=== PATIENT | male | born 1955 | race Caucasian/White ===

== ENCOUNTER 2019-02-06 05:08 | Observation (INO) ==
[2019-02-06] MEDS ORDERED: MOM Conc 10 ML UD.LIQ PO PRN (08:47)
[2019-02-06] MEDS ORDERED: Ondansetron ODT 4 MG TAB.RAPDIS SL PRN (08:47)
[2019-02-06] MEDS ORDERED: Acetaminophen 325 MG TABLET PO PRN (08:47)
[2019-02-06] MEDS ORDERED: Naloxone 0.4 MG/ML INJ IVP PRN (08:47)
[2019-02-06] MEDS ORDERED: traMADol 50 MG TABLET PO PRN (08:47)
[2019-02-06] MEDS ORDERED: *HR* LORazepam 2 MG/ML VIAL IVP PRN ×3 (08:56)
[2019-02-06] MEDS ORDERED: Azithromycin 500 MG in D5% in Water 250 ML IVPB SCH (09:00)
[2019-02-06] MEDS ORDERED: cefTRIAXone 1,000 MG in Water for inj. (sterile) 20 ML 10 ML IVP SCH (09:00)
--- NOTE | 2019-02-06 09:00 | Internal Med History&Physical ---
Date of Encounter: 02/06/19 Time of Encounter: 08:45 Internal Medicine - H&P: HPI Chief complaint: chest pain Admitted From: Hospital to Hospital Transfer Plans for Post Hospital Care: Home History of present illness: Mr. Anderson is a 63 year old male with hx of ETOH abuse transferred from [place] due to chest pain and concern for pneumonia. Mr Anderson stated he was in his usual state of health until yesterday evening. He rides his bike daily ("not up hills, I walk my bike on those") and does not experience CP or SOB. He was sitting on a bench when he had sudden substernal chest discomfort radiating up his neck to his head. Did not radiate elsewhere. No associated dyspnea or nausea. No diaphoresis. No recent illness. Never had symptoms before and denies hx of cardiac disease. Evaluated and ED and CTA neg for PE. Initial troponin negative. ETOH level elevated and he says he drinks "few beers every other day but I used to drink more." At this time he is asymptomatic and resting. Past Med Surg Social Fam HX - Past Medical History Source: patient Medical history: liver disease (Hep C antibody positive) Psychiatric history: no psych history - Past Surgical History Surgical History: no surgical history - Social History Smoking Status: Current every day smoker Packs per day: 1 Alcohol use: occasionally, recent Drug use: none Occupational status: unemployed - Family History Mother Living Status: Age at : 85 Cause of : dementia Hx Family Neurologic Disorders: Yes (Alzheimers) Father Living Status: Age at : 68 Cause of : breathing problems Hx Family Respiratory Disorders: Yes (Emphysema) Internal Medicine - H&P: Meds Meloxicam [Mobic] 7.5 mg PO DAILY 02/06/19 [History] predniSONE [PredniSONE] 20 mg PO 02/06/19 [History] Allergy/AdvReac Type Severity Reaction Status Date / Time No Known Allergies Allergy Verified 12/13/18 01:04 All Systems PM: A 10-system review of systems was performed and is negative for pertinent findings except as documented above in the HPI. - Constitutional Constitutional: no lethargy, no night sweats - EENT Eyes: no change in vision, no tunnel vision Ears: no decreased hearing Nose, mouth and throat: no dry mouth, no sinus pain - Cardiovascular Cardiovascular ROS IM: chest pain, no dyspnea, no dyspnea on exertion, no edema, no lightheadedness, no orthopnea, no palpitations, no paroxysmal nocturnal dyspnea, no syncope - Respiratory Respiratory: cough (AM with scant clear sputum), no dyspnea, no hemoptysis, no dyspnea on exertion, no wheezing, no chest congestion, no excessive phlegm production, no change in phlegm color - Gastrointestinal Gastrointestinal: no abdominal pain, no melena - Genitourinary Genitourinary ROS male: no dysuria, no urinary frequency - Musculoskeletal Musculoskeletal ROS IM: no arthralgias, no muscle weakness - Integumentary Integumentary IM: no erythema, no rash - Neurological Neurological ROS: no convulsions, no tremor(s), no vertigo, no weakness - Endocrine Endocrine IM: no excessive sweating - Hematologic/Lymphatic Hematologic/Lymphatic: no easy bleeding - Allergic/Immunologic Allergic/Immunologic: no throat swelling - Constitutional Vitals: Temp Pulse Resp BP Pulse Ox 99.5 F 91 18 126/78 94 02/06/19 07:22 02/06/19 07:22 02/06/19 07:22 02/06/19 07:22 02/06/19 07:22 General appearance: Present: A&O X 3, answers questions appropriately Exam: See below - Head Head exam: Present: atraumatic, normocephalic - Eye Eye exam: Present: EOMI, conjuntiva pink - ENT ENT exam: Present: mucous membranes moist - Neck Neck exam general surgery: Present: normal inspection. Absent: lymphadenopathy, thyromegaly - Respiratory Respiratory exam: Present: prolonged expiratory phase, wheezes (end exp diffusely) - Cardiovascular Cardiovascular exam: Present: RRR. Absent: +S3, +S4, systolic murmur, tachycardia - GI/Abdominal GI/Abdominal exam: Present: normal bowel sounds, soft. Absent: mass, tenderness - Extremities Exam Extremities exam: Present: warm. 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 Currently wheezing on exam. Place in observation. IV abx, prednisone, aerosols Smoking cessation advised. Pt high risk for further respiratory compromise. (2) Chest pain Current Visit: Yes Status: Acute Assessment and plan: Pt had sudden onset of pleuritic type chest pain last evening. He is active riding a bike daily without symptoms. Has resolved at this time. First troponin negative. Continue troponins. ASA. Statin. NPO midnight for possible stress test in AM. Qualifiers: Chest pain type: pleurodynia Qualified Code(s): R07.81 - Pleurodynia (3) Alcohol abuse Current Visit: Yes Status: Chronic Assessment and plan: Pt admits to current alcohol use and level was elevated in ED. CIWA ordered. (4) Tobacco abuse Current Visit: Yes Status: Chronic Assessment and plan: Cessation counselling Nicotine patch (5) Hepatitis C antibody positive in blood Current Visit: Yes Status: Acute Assessment and plan: Pt denies exposure in the past. LFTs elevated. Viral load ordered. - Time Spent With Patient Total time spent is greater than 50% in coordination of care (as documented) at patient's floor/unit and/or counseling patient:
[2019-02-06] MEDS: Thiamine (B-1) 100 MG TABLET PO SCH (10:26)
[2019-02-06] MEDS: Folic Acid 1 MG TABLET PO SCH (10:26)
[2019-02-06] MEDS: predniSONE 20 MG TABLET PO SCH (10:26)
[2019-02-06] MEDS: 0.9 % Sodium Chloride 1,000 ML IVC SCH ×2 (10:27→20:12)
[2019-02-06] MEDS: Nicotine 21 MG PATCH.TD24 TD SCH (10:27)
[2019-02-06] MEDS: Ipratropium/Albuterol Neb 3 ML IH SCH ×3 (10:44→21:39)
[2019-02-06] MEDS ORDERED: Perflutren Lipid Microsphere 1.3 ML in 0.9 % Sodium Chloride 8.7 ML IVP ONE (20:13)
[2019-02-07] MEDS: Ipratropium/Albuterol Neb 3 ML IH SCH ×3 (03:43→16:00)
[2019-02-07 05:53] LABS: Hematocrit 36.5 % (37.5-50.1); Hemoglobin 12.3 g/dL (12.9-16.9); Immature Platelets 6.4 % (1.1-6.1); Mean Corpuscular HGB Conc 33.7 g/dL (31.6-35.5); Mean Corpuscular Volume 86.1 fL (83.0-100.0); Mean Platelet Volume 11.6 fL (9.4-12.4); Red Blood Count 4.24 M/mcL (4.19-5.50); Red Cell Distribution Width 15.2 % (11.5-14.5)
[2019-02-07 05:59] LABS: BUN/Creatinine Ratio 16 (6-26); Blood Urea Nitrogen 9 mg/dL (8-23); Calcium 8.3 mg/dL (8.6-10.3); Carbon Dioxide 25 mEq/L (23-29); Chloride 109 mEq/L (98-107); Chol/HDL Ratio 5.6 (0-4.9); Cholesterol 158 mg/dL (< 200); Glucose 151 mg/dL (70-105); HDL Cholesterol 28 mg/dL (40-59); LDL Cholesterol,Calculated 120 mg/dL (0-99); Magnesium 1.7 mg/dL (1.6-2.6); Osmolality,Calculated 290 (280-300); Potassium 3.6 mEq/L (3.5-5.1); Sodium 139 mEq/L (136-145); Triglycerides 51 mg/dL (< 150); eGFR For African Americans > 60 (> 60); eGFR For Non-African Americans > 60 (> 60)
[2019-02-07 08:42] LABS: Estimated Average Glucose 97 mg/dl
--- NOTE | 2019-02-07 09:04 | Internal Med Progress Note ---
Hospitalist Progress Note - Encounter Date of Encounter: 02/07/19 Time of Encounter: 09:02 - Exam Vitals: Temp Pulse Resp BP Pulse Ox 97.6 F 79 16 133/78 95 02/07/19 07:38 02/07/19 07:38 02/07/19 07:38 02/07/19 07:38 02/07/19 07:38 Exam: General: No acute distress, resting comfortably in bed HEENT: head normocephalic/atraumatic, EOMI, PERRL, sclera anicteric, moist mucus membranes, Neck: Supple, no lymphadenopathy Cardio: RRR, no murmurs, +S1/S2 Pulm: CTAB, no wheezing, rhonchi, rales. Normal respiratory effort. Abdomen: soft, nontender, active bowel sounds, no rebound, rigidity, guarding, distention Extremities: No LE edema, no calf tenderness, no cyanosis, clubbing, splinter hemorrhages Back: normal appearance on inspection, Nontender throughout Neuro: AAOx3, no focal deficit, no speech deficit, mentating well, normal gait, CN II-XII grossly intact, moves extremities spontaneously MSK: Strength 5/5 throughout, no visible deformities Skin: clean, dry, intact, no visible rashes Psych: Appropriate mood and affect. Answers questions appropriately. Cooperative with exam - Assessment and Plan (1) COPD with acute exacerbation Current Visit: Yes Status: Suspected (2) Chest pain Current Visit: Yes Status: Acute (3) Alcohol abuse Current Visit: Yes Status: Chronic (4) Tobacco abuse Current Visit: Yes Status: Chronic (5) Hepatitis C antibody positive in blood Current Visit: Yes Status: Acute - Time Spent with Patient Total time spent is greater than 50% in coordination of care (as documented) at patient's floor/unit and/or counseling patient: Internal Medicine: Result - Labs CBC & Chem 7: 02/07/19 05:21 02/07/19 05:21 Labs: Short CBC 02/07/19 Range/Units 05:21 WBC 12.0 H (4.3-11.1) K/mcL Hgb 12.3 L D (12.9-16.9) g/dL Hct 36.5 L (37.5-50.1) % Plt Count 70 L (140-400) K/mcL BMP 02/07/19 05:21 Sodium 139 Potassium 3.6 Chloride 109 H Carbon Dioxide 25 BUN 9 Creatinine 0.56 L Glucose 151 H Calcium 8.3 L Cardiac Enzymes 02/06/19 02/06/19 02/06/19 Range/Units 09:14 15:07 20:29 Troponin I < 0.03 0.03 0.03 (< 0.04) ng/mL Consult Discharge Plan - Plan Referrals: NONE,PCP [Primary Care Provider] - (2) Chest pain Qualifiers: Chest pain type: pleurodynia Qualified Code(s): R07.81 - Pleurodynia
[2019-02-07] MEDS: predniSONE 20 MG TABLET PO SCH ×2 (10:09→10:30)
[2019-02-07] MEDS: Folic Acid 1 MG TABLET PO SCH ×2 (10:09→10:30)
[2019-02-07] MEDS: Aspirin Enteric Coated 81 MG Tablet PO SCH ×2 (10:09→10:30)
[2019-02-07] MEDS: Nicotine 21 MG PATCH.TD24 TD SCH (10:09)
[2019-02-07] MEDS: Thiamine (B-1) 100 MG TABLET PO SCH ×2 (10:10→10:30)
[2019-02-07] MEDS: cefTRIAXone 1,000 MG in Water for inj. (sterile) 20 ML 10 ML IVP SCH ×2 (10:10→10:19)
[2019-02-07] MEDS: Azithromycin 500 MG in D5% in Water 250 ML IVPB SCH ×2 (10:10→10:19)
[2019-02-07 11:05] VITALS: BP 141/81
--- NOTE | 2019-02-07 13:59 | Discharge Summary ---
- NOTES TO OUTPATIENT PROVIDER Notes to Outpatient Provider: admitted for chest pain and shortness of breathdiagnosed with COPD exacerbation. Chest pain rule out was normal. TTE normal and troponin's negative. Discharged with azithromycin, prednisone, albuterol. Counseled on smoking and alcohol cessation. Orders not resulted at time of discharge: Pending orders 02/06/19 09:00 ECG 12 lead ECG [ECG] Routine 02/07/19 05:21 Hepatitis C Virus Quant AM 0400 Date of Encounter: 02/07/19 Time of Encounter: 13:59 - Discharge Diagnosis (1) COPD with acute exacerbation Priority: Primary Status: Suspected (2) Chest pain Priority: Secondary Status: Acute Qualifiers: Chest pain type: pleurodynia Qualified Code(s): R07.81 - Pleurodynia (3) Alcohol abuse Priority: Secondary Status: Chronic (4) Tobacco abuse Priority: Secondary Status: Chronic (5) Hepatitis C antibody positive in blood Priority: Secondary Status: Acute Hospital course: Mr. Anderson is a 63 year old male with hx of ETOH abuse transferred from [place] due to chest pain and concern for pneumonia. The patient reported that he had been fine when he suddenly while he was at rest developed substernal chest discomfort that radiated of his neck to his head. He rides his bike daily ("not up hills, I walk my bike on those") and does not experience CP or SOB. Deny dyspnea, nausea, diaphoresis. No recent illness. Never had symptoms for or history of cardiac disease. Evaluated and ED and CTA neg for PE. Initial troponin negative. ETOH level elevated and he says he drinks "few beers every other day but I used to drink more." He was admitted with a COPD exacerbation. His chest pain was pleuritic in nature. Chest pain workup was negative for acute ischemia. The WBC 12, LDL 120, cholesterol 158, HDL 28. Troponin's negative. TTE: EF 60-65%, indeterminate diastolic function. Mild tricuspid regurgitation and mild pulmonary hypertension. The patient was started on antibiotics and steroids. He was given bronchodilators as needed. He was started with thymine and folic acid. He was placed on CIWA protocol due to his alcohol use. He was counseled on smoking cessation. The patient continue to improve back to his baseline and reported that he felt significantly better. He felt that he was ready to be discharged. He was on room air not requiring any supplemental oxygen. On discharge she was given a follow-up at [facility]. He was given azithromycin and prednisone to finish COPD exacerbation treatment. He was given aspirin 81 mg and atorvastatin to continue taking. He was given a prescription for a new nebulizer machine along with albuterol nebulizers and albuterol inhaler. He was given folic acid and thiamine. He stated clear understanding of the treatment plan. Discharge discussed with: patient, nurse Time spent discussing smoking cessation with patient: more than 10 minutes - Time Spent with Patient Total time spent providing and/or coordinating discharge services: Time spent: Greater than 30 minutes - Discharge Medications Prescriptions: New Albuterol Sulfate [Albuterol Inhaler] 0 puff IH Q4HR PRN #1 [email or web address] PRN Reason: Shortness Of Breath Aspirin Enteric Coated [Aspirin EC] 81 mg PO DAILY #30 tablet. Ipratropium/Albuterol Neb [Duoneb] 3 ml IH QIDR PRN #60 inhsol PRN Reason: Shortness Of Breath Folic Acid 1 mg PO DAILY #30 tablet Atorvastatin [Lipitor] 40 mg PO HS #30 tablet predniSONE [PredniSONE] 40 mg PO DAILY 4 Days #8 tablet Thiamine (B-1) [Vitamin B-1] 100 mg PO DAILY #30 tablet Azithromycin [Zithromax] 250 mg PO Q24H #4 tablet Continued Meloxicam [Mobic] 7.5 mg PO DAILY Discontinued predniSONE [PredniSONE] 20 mg PO Home Medications: Meloxicam [Mobic] 7.5 mg PO DAILY 02/06/19 [History] Albuterol Sulfate [Albuterol Inhaler] 0 puff IH Q4HR PRN #1 [email or web address] 02/07/19 [Rx] Aspirin Enteric Coated [Aspirin EC] 81 mg PO DAILY #30 tablet. 02/07/19 [Rx] Atorvastatin [Lipitor] 40 mg PO HS #30 tablet 02/07/19 [Rx] Azithromycin [Zithromax] 250 mg PO Q24H #4 tablet 02/07/19 [Rx] Folic Acid 1 mg PO DAILY #30 tablet 02/07/19 [Rx] Ipratropium/Albuterol Neb [Duoneb] 3 ml IH QIDR PRN #60 inhsol 02/07/19 [Rx] Thiamine (B-1) [Vitamin B-1] 100 mg PO DAILY #30 tablet 02/07/19 [Rx] predniSONE [PredniSONE] 40 mg PO DAILY 4 Days #8 tablet 02/07/19 [Rx] Allergies/Adverse Reactions: Allergy/AdvReac Type Severity Reaction Status Date / Time No Known Allergies Allergy Verified 02/07/19 14:52 Date of admission: 02/06/19 06:34 Primary care physician: PCP NONE Consults: 02/06/19 08:54 Consult to Nurse Navigator [CONS] Routine Comment: Discharging clinician: Vaughn Carnes Anticipated date of discharge: 02/07/19 - Constitutional Vitals: Temp Pulse Resp BP Pulse Ox 97.5 F L 77 15 141/81 92 02/07/19 11:02 02/07/19 11:02 02/07/19 11:02 02/07/19 11:02 02/07/19 11:02 General appearance: Present: A&O X 3, answers questions appropriately Exam: Gen.: Vitals noted. No acute distress. AAOx3 HEENT: oropharynx clear, Normocephalic, atraumatic Cardiac: RRR, no murmur, +S1/S2 Pulmonary: CTA bilaterally but with slight crackles in bases, no wheezes, rales or rhonchi, equal chest expansion Abdomen: soft, nontender, Bowel sounds noted, no guarding MSK: ROM intact, no joint swelling noted Extremities: no BLE edema, nontender calf, no cyanosis or clubbing Neuro: A&Ox3, moves all extremities, no focal deficits Psych: Appropriate mood and behavior - Patient Status Disposition: Home, Self-Care Condition: Good Functional capacity at discharge: independent ambulation Overall status at discharge: patient is progressing back to baseline - Discharge Instructions Follow Up With: Mary Carmen Allen PRODUCT MARKETING DIRECTOR [Advanced Practice Nurse] - 02/19/19 11:00 am (Please bring insurance card, Photo I.D, and medications you are currently taking. ) NONE,PCP [Primary Care Provider] - (family medicine residency clinic) Additional Instructions: -finish taking antibiotics and steroids is prescribed -use the albuterol inhaler and albuterol nebulizer as needed -continue taking aspirin 81 mg and atorvastatin daily -Follow-up with your primary care provider at the residency clinic to get established in 1 to 2 weeks -Recommend to stop smoking cigarettes and decreased alcohol intake. -may take the vitamins as prescribed - Diet and Activity Activity: resume usual activities as tolerated Diet: advance to your usual diet
[2019-02-09 07:22] LABS: HCV Quant Log 5.86 log IU/mL
[2019-02-09 10:44] LABS: HCV Quant Interpretation DETECTED (Not Detected)
== END 2019-02-07 16:22 | disposition home or self-care (01) ==
LOC: 3BNU → SUATTDRO 06:34 → UNDODISOB 02-07 10:00
PROVIDERS: ADMIT Internal Medicine; ATTEND Internal Medicine

== ENCOUNTER 2020-02-02 08:03 | Inpatient (IN) ==
[2020-02-02] MEDS ORDERED: CeFAZolin Syr 2,000MG/20 ML 2,000 MG/20 ML SYRINGE IVPB ONE (08:36)
[2020-02-02] MEDS: Ringers Solution, Lactated 1,000 ML IVC SCH ×2 (09:15→11:24)
[2020-02-02] MEDS ORDERED: *HR* Rocuronium Bromide 50 MG/5 ML VIAL ONE (09:52)
[2020-02-02] MEDS ORDERED: *HR* FentaNYL (PF) 100 MCG/2 ML VIAL ONE (09:52)
[2020-02-02] MEDS ORDERED: Ondansetron 4 MG/2 ML VIAL ONE (09:52)
[2020-02-02] MEDS ORDERED: *HR* Succinylcholine 200 MG/10 ML VIAL IVP ONE (09:52)
[2020-02-02] MEDS ORDERED: Dexamethasone 4 MG/ML VIAL ONE (09:52)
[2020-02-02] MEDS ORDERED: Lidocaine -MPF 2% 2 ML VIAL ONE (09:52)
[2020-02-02] MEDS ORDERED: Lidocaine HCL 4 ML Topical Solution (Laryng-O-Jet Kit Sterile Pak) TP ONE (09:52)
[2020-02-02] MEDS ORDERED: *HR* Propofol 200 MG/20 ML VIAL IVP ONE (09:52)
[2020-02-02] MEDS ORDERED: Neostigmine Methylsulfate 3 MG/3 ML SYRINGE ONE (09:52)
[2020-02-02] MEDS ORDERED: Ondansetron 4 MG/2 ML VIAL IVP ONE (10:00)
[2020-02-02] MEDS ORDERED: *HR* OxyCODONE Immed Rel 5 MG TABLET PO PRN (10:00)
[2020-02-02] MEDS ORDERED: *HR* HYDROMORPHONE 2 MG/ML VIAL ONE (10:46)
[2020-02-02] MEDS ORDERED: *HR* Labetalol 20 MG/4 ML SYRINGE IVP ONE (11:23)
[2020-02-02] MEDS ORDERED: *HR* PHENYLEPHRINE 1,000 MCG/10 ML SYRINGE IVP ONE (11:42)
[2020-02-02] MEDS: *HR* HYDROmorphone PF 0.5 MG/0.5 ML SYRINGE IVP PRN ×2 (12:47→12:53)
[2020-02-02] MEDS ORDERED: Naloxone 0.4 MG/ML INJ IVP PRN (13:40)
[2020-02-02] MEDS ORDERED: Ondansetron 4 MG/2 ML VIAL IVP PRN (13:40)
[2020-02-02] MEDS: 0.9 % Sodium Chloride 1,000 ML IVC SCH (14:20)
[2020-02-02] MEDS: Acetaminophen IV 1,000 MG/100 ML INFUS..BTL IVPB SCH ×2 (16:41→23:33)
[2020-02-02] MEDS: *HR* OxyCODONE Oral Soln 5 MG/5 ML UD.LIQ PO PRN ×2 (16:49→23:34)
[2020-02-02] MEDS ORDERED: *HR* Metoprolol 5 MG/5 ML VIAL IVP ONE (17:40)
[2020-02-03] MEDS: 0.9 % Sodium Chloride 1,000 ML IVC SCH ×2 (05:22→18:05)
[2020-02-03] MEDS: Acetaminophen IV 1,000 MG/100 ML INFUS..BTL IVPB SCH ×3 (05:45→18:04)
[2020-02-03 06:26] LABS: Hematocrit 34.6 % (37.5-50.1); Hemoglobin 11.2 g/dL (12.9-16.9); Immature Platelets 6.8 % (1.1-6.1); Mean Corpuscular HGB Conc 32.4 g/dL (31.6-35.5); Mean Corpuscular Hemoglobin 29.6 pg (28.0-33.3); Mean Corpuscular Volume 91.3 fL (83.0-100.0); Mean Platelet Volume 10.9 fL (9.4-12.4); Nucleated Red Blood Cells 0.1 /100 WBC (0); Red Blood Count 3.79 M/mcL (4.19-5.50); White Blood Count 13.9 K/mcL (4.3-11.1)
[2020-02-03 06:38] LABS: Calcium 7.5 mg/dL (8.6-10.3); Platelet Count 97 K/mcL (140-400); Potassium 4.8 mEq/L (3.5-5.1)
[2020-02-03 07:21] LABS: Monocytes # 0.8 K/mcL (0.0-1.3); Neutrophils # 9.2 K/mcL (1.6-8.9)
[2020-02-03 07:22] LABS: Anisocytosis 1+ (Not Present); Hypochromasia Present (Not Present); Platelet Estimate Slight Decrease (Normal); Reactive Lymphocytes Present (Not Present); Smudge Cells Present (Not Present); Toxic Granulation Present (Not Present)
[2020-02-03] MEDS ORDERED: 0.9 % Sodium Chloride 500 ML IVC ONE (12:27)
[2020-02-03] MEDS: *HR* OxyCODONE Oral Soln 5 MG/5 ML UD.LIQ PO PRN ×2 (12:42→20:50)
[2020-02-03] MEDS: Ipratropium/Albuterol Neb 3 ML IH SCH ×4 (13:59→23:53)
[2020-02-03] MEDS: Pantoprazole 40 MG VIAL IVP SCH (14:20)
[2020-02-03] MEDS: Thiamine (B-1) 100 MG, Folic Acid 1 MG, MVI, adult with vitamin K 10 ML in 0.9 % Sodi... IVPB SCH (18:27)
[2020-02-04] MEDS: Acetaminophen IV 1,000 MG/100 ML INFUS..BTL IVPB SCH ×4 (00:35→18:46)
[2020-02-04 03:29] LABS: Mean Corpuscular Volume 88.4 fL (83.0-100.0)
[2020-02-04 03:31] LABS: Basophils % 0.3 %; Hematocrit 31.1 % (37.5-50.1); Hemoglobin 10.5 g/dL (12.9-16.9); Immature Granulocytes % 0.8 % (0-4); Immature Platelets 6.7 % (1.1-6.1); Lymphocytes # 1.7 K/mcL (0.6-4.6); Lymphocytes % 17.5 %; Mean Corpuscular HGB Conc 33.8 g/dL (31.6-35.5); Mean Corpuscular Hemoglobin 29.8 pg (28.0-33.3); Mean Platelet Volume 10.7 fL (9.4-12.4); Monocytes # 1.5 K/mcL (0.0-1.3); Monocytes % 15.2 %; Red Blood Count 3.52 M/mcL (4.19-5.50); Red Cell Distribution Width 16.5 % (11.5-14.5); Segmented Neutrophils % 66.2 %; White Blood Count 9.9 K/mcL (4.3-11.1)
[2020-02-04 03:43] LABS: BUN/Creatinine Ratio 26 (6-26); Blood Urea Nitrogen 20 mg/dL (8-23); Calcium 7.3 mg/dL (8.6-10.3); Carbon Dioxide 18 mEq/L (23-29); Chloride 104 mEq/L (98-107); Glucose 126 mg/dL (70-105); Osmolality,Calculated 272 (280-300); Potassium 4.3 mEq/L (3.5-5.1); Sodium 129 mEq/L (136-145); eGFR For African Americans > 60 (> 60); eGFR For Non-African Americans > 60 (> 60)
[2020-02-04 03:45] LABS: Neutrophils # 6.6 K/mcL (1.6-8.9); Platelet Count 89 K/mcL (140-400)
[2020-02-04 03:46] LABS: Platelet Estimate Slight Decrease (Normal); Poikilocytosis 1+ (Not Present); Target Cells 1+ (Not Present)
[2020-02-04] MEDS: Pantoprazole 40 MG VIAL IVP SCH (07:50)
[2020-02-04] MEDS: 0.9 % Sodium Chloride 1,000 ML IVC SCH ×2 (07:56→22:28)
[2020-02-04] MEDS ORDERED: Folic Acid 1 MG TABLET PO SCH (09:00)
[2020-02-04] MEDS: *HR* OxyCODONE Oral Soln 5 MG/5 ML UD.LIQ PO PRN ×2 (11:49→19:21)
[2020-02-04] MEDS: Thiamine (B-1) 100 MG, Folic Acid 1 MG, MVI, adult with vitamin K 10 ML in 0.9 % Sodi... IVPB SCH (19:31)
[2020-02-04] MEDS ORDERED: Morphine Sulfate 2 MG/ML SYRINGE IVP ONE (22:14)
[2020-02-04] MEDS: Simethicone 80 MG TAB.CHEW PO PRN (22:29)
[2020-02-05] MEDS: Acetaminophen IV 1,000 MG/100 ML INFUS..BTL IVPB SCH ×2 (00:27→05:55)
[2020-02-05] MEDS: *HR* OxyCODONE Oral Soln 5 MG/5 ML UD.LIQ PO PRN (06:01)
[2020-02-05] MEDS: Simethicone 80 MG TAB.CHEW PO PRN (08:03)
[2020-02-05] MEDS: Pantoprazole 40 MG VIAL IVP SCH (08:03)
[2020-02-05] MEDS ORDERED: Isovue-370 500 ML BOTTLE IVP ONE ×7 (08:15→11:30)
[2020-02-05 09:07] LABS: Calcium 7.8 mg/dL (8.6-10.3); Magnesium 1.9 mg/dL (1.6-2.6); Potassium 4.6 mEq/L (3.5-5.1)
[2020-02-05] MEDS ORDERED: Dextrose Gel 15 GM/37.5 ML TUBE PO ONE (09:07)
[2020-02-05] MEDS ORDERED: D5% in Water 1,000 ML IVC PRN ×2 (09:09→11:30)
[2020-02-05] MEDS ORDERED: *HR* Dextrose 50 % in Water (Syg) 50 ML SYRINGE IVP PRN ×2 (09:09→11:30)
[2020-02-05] MEDS ORDERED: Dextrose Gel 15 GM/37.5 ML TUBE PO PRN ×4 (09:09→11:30)
[2020-02-05 09:27] LABS: Eosinophils # 0.2 K/mcL (0.0-0.6); Hematocrit 36.7 % (37.5-50.1); Hemoglobin 11.2 g/dL (12.9-16.9); Mean Corpuscular HGB Conc 30.5 g/dL (31.6-35.5); Mean Corpuscular Hemoglobin 29.7 pg (28.0-33.3); Mean Corpuscular Volume 97.3 fL (83.0-100.0); Mean Platelet Volume 11.1 fL (9.4-12.4); Nucleated Red Blood Cells 1.1 /100 WBC (0); Platelet Count 107 K/mcL (140-400); Red Blood Count 3.77 M/mcL (4.19-5.50); White Blood Count 12.2 K/mcL (4.3-11.1)
[2020-02-05] MEDS ORDERED: Ringers Solution, Lactated 1,000 ML IVC ONE ×2 (09:58→11:30)
[2020-02-05 09:59] LABS: Basophils # 0.1 K/mcL (0.0-0.2); Lymphocytes # 2.8 K/mcL (0.6-4.6); Monocytes # 0.5 K/mcL (0.0-1.3); Neutrophils # 7.8 K/mcL (1.6-8.9)
[2020-02-05 10:00] LABS: Platelet Estimate Slight Decrease (Normal)
[2020-02-05] MEDS ORDERED: Sodium Bicarbonate 150 MEQ in D5% in Water 1,000 ML IVC SCH (10:00)
[2020-02-05] MEDS ORDERED: Piperacillin/Tazobactam 3.375 GM in 0.9 % Sodium Chloride Mini Bag 100 ML IVPB SCH ×2 (10:00→18:00)
[2020-02-05 10:01] LABS: Anisocytosis 1+ (Not Present); Poikilocytosis 1+ (Not Present); Polychromasia 1+ (Not Present)
[2020-02-05] MEDS ORDERED: Ipratropium/Albuterol Neb 3 ML IH SCH (10:09)
[2020-02-05] MEDS ORDERED: Sodium Bicarbonate 50 MEQ/50 ML VIAL ONE (10:19)
[2020-02-05] MEDS ORDERED: Sodium Bicarbonate 50 MEQ/50 ML VIAL IVP ONE ×2 (10:28→11:30)
[2020-02-05 11:04] LABS: Albumin/Globulin Ratio 0.7 (1.1-2.2); Bilirubin,Direct 1.7 mg/dL (0.0-0.2); Bilirubin,Indirect 1.6 mg/dL (0.0-1.0); Bilirubin,Total 3.3 mg/dL (0.3-1.0)
[2020-02-05 11:05] LABS: INR 2.6; Prothrombin Time 29.5 Seconds (9.4-12.1)
[2020-02-05] MEDS ORDERED: Aminoglycoside Consult 1 EACH MC ONE (11:21)
[2020-02-05] MEDS ORDERED: *HR* Midazolam HCl 5 MG/5 ML VIAL IVP ONE (11:21)
[2020-02-05] MEDS ORDERED: *HR* Propofol 200 MG/20 ML VIAL IVP ONE (11:21)
[2020-02-05] MEDS ORDERED: *HR* Etomidate 20 MG/10 ML AMPUL IVP ONE (11:21)
[2020-02-05] MEDS ORDERED: Ondansetron 4 MG/2 ML VIAL IVP PRN (11:30)
[2020-02-05] MEDS ORDERED: Naloxone 0.4 MG/ML INJ IVP PRN (11:30)
[2020-02-05] MEDS: Ipratropium/Albuterol Neb 3 ML IH SCH ×4 (11:40→23:46)
[2020-02-05] MEDS: Piperacillin/Tazobactam 3.375 GM in 0.9 % Sodium Chloride Mini Bag 100 ML IVPB SCH ×2 (11:48→22:49)
[2020-02-05] MEDS ORDERED: Acetaminophen IV 1,000 MG/100 ML INFUS..BTL IVPB SCH (12:00)
[2020-02-05] MEDS ORDERED: Vancomycin 1,250 MG/262.5 ML IV.SOLN IVPB SCH ×2 (12:00)
[2020-02-05 12:13] LABS: ABG Base Excess -20 mEq/L (-2 to 3); ABG HCO3 8 mEq/L (21-27); ABG Oxygen Saturation 90 % (95-98); ABG PCO2 23 mmHg (35-45); ABG PH 7.12 pH Units (7.32-7.45); ABG PO2 77 mmHg (85-104); ABG TCO2 8 mEq/L (20-26)
[2020-02-05] MEDS ORDERED: *HR* LORazepam 2 MG/ML VIAL IVP PRN (12:28)
[2020-02-05] MEDS ORDERED: Folic Acid 1 MG in 0.9 % Sodium Chloride 50 ML IVPB SCH (12:30)
[2020-02-05] MEDS ORDERED: FentaNYL (PF) 1,000 MCG/100 ML IV.SOLN IVC SCH (15:45)
[2020-02-05] MEDS ORDERED: Midazolam HCl 50 MG/100 ML IV.SOLN IVC SCH (15:45)
[2020-02-05 17:25] LABS: ABG Base Excess -17 mEq/L (-2 to 3); ABG HCO3 11 mEq/L (21-27); ABG Oxygen Saturation 94 % (95-98); ABG PCO2 30 mmHg (35-45); ABG PH 7.16 pH Units (7.32-7.45); ABG PO2 87 mmHg (85-104); ABG TCO2 12 mEq/L (20-26); Blood Gas Modality AF; Blood Gas VT 500 cc
[2020-02-05] MEDS ORDERED: Thiamine (B-1) 100 MG, Folic Acid 1 MG, MVI, adult with vitamin K 10 ML in 0.9 % Sodi... IVPB SCH (18:00)
[2020-02-05 18:05] LABS: Calcium 7.1 mg/dL (8.6-10.3); Potassium 4.2 mEq/L (3.5-5.1); Troponin I 0.08 ng/mL (< 0.04)
[2020-02-05 18:47] LABS: ABG Base Excess -16 mEq/L (-2 to 3); ABG HCO3 10 mEq/L (21-27); ABG Oxygen Saturation 92 % (95-98); ABG PCO2 24 mmHg (35-45); ABG PH 7.23 pH Units (7.32-7.45); ABG PO2 75 mmHg (85-104); ABG TCO2 11 mEq/L (20-26); Blood Gas Modality ASSIST CONTROL; Blood Gas VT 55 cc
[2020-02-05] MEDS: Sodium Bicarbonate 150 MEQ in D5% in Water 1,000 ML IVC SCH ×2 (19:20→20:29)
[2020-02-05] MEDS ORDERED: Perflutren Lipid Microsphere 1.3 ML in 0.9 % Sodium Chloride 8.7 ML IVP ONE (19:34)
[2020-02-05 19:39] LABS: Hematocrit 29.2 % (37.5-50.1); Mean Corpuscular HGB Conc 31.5 g/dL (31.6-35.5); Mean Corpuscular Hemoglobin 30.1 pg (28.0-33.3); Mean Corpuscular Volume 95.4 fL (83.0-100.0); Mean Platelet Volume 11.7 fL (9.4-12.4); Nucleated Red Blood Cells 1.2 /100 WBC (0); Red Blood Count 3.06 M/mcL (4.19-5.50); Red Cell Distribution Width 17.9 % (11.5-14.5); White Blood Count 8.1 K/mcL (4.3-11.1)
[2020-02-05 19:52] LABS: Activated Partial Thrombo Time 67.3 Seconds (26.0-36.0)
[2020-02-05 19:56] LABS: Hemoglobin 9.2 g/dL (12.9-16.9); Platelet Count 58 K/mcL (140-400)
[2020-02-05 19:57] LABS: INR 4.3; Prothrombin Time 48.6 Seconds (9.4-12.1)
[2020-02-05 20:00] LABS: Lymphocytes # 1.1 K/mcL (0.6-4.6); Monocytes # 0.8 K/mcL (0.0-1.3)
[2020-02-05 20:01] LABS: BUN/Creatinine Ratio 18 (6-26); Blood Urea Nitrogen 25 mg/dL (8-23); Calcium 6.6 mg/dL (8.6-10.3); Carbon Dioxide 11 mEq/L (23-29); Chloride 100 mEq/L (98-107); Glucose 205 mg/dL (70-105); Hypochromasia Present (Not Present); Microcytosis Present (Not Present); Osmolality,Calculated 286 (280-300); Platelet Estimate Marked Decrease (Normal); Sodium 133 mEq/L (136-145); eGFR For African Americans > 60 (> 60); eGFR For Non-African Americans 52 (> 60)
[2020-02-05 20:02] LABS: Acanthocytes 1+ (Not Present); Large Platelets Present (Not Present); Poikilocytosis 1+ (Not Present); Reactive Lymphocytes Present (Not Present); Toxic Granulation Present (Not Present)
[2020-02-05 20:03] LABS: Polychromasia 1+ (Not Present)
[2020-02-05 20:04] LABS: Smudge Cells Present (Not Present)
[2020-02-05] MEDS ORDERED: 0.9 % Sodium Chloride 250 ML IVC SCH ×2 (20:30→21:30)
[2020-02-05] MEDS ORDERED: 0.9 % Sodium Chloride 250 ML ONE ×2 (20:32→21:47)
[2020-02-05] MEDS ORDERED: Vancomycin Oral Soln 125 MG/2.5 ML UDC PO SCH (21:00)
[2020-02-05] MEDS ORDERED: 0.9 % Sodium Chloride 1,000 ML ONE (21:04)
[2020-02-05] MEDS ORDERED: Ringers Solution, Lactated 1,000 ML IVC SCH (21:30)
[2020-02-05] MEDS ORDERED: Albumin Human 5% 12.5 GM/250 ML IV.SOLN ONE (21:33)
[2020-02-05] MEDS ORDERED: Albumin 25% 25gram/100mL 25 GM/100 ML IV.SOLN ONE (21:33)
[2020-02-05] MEDS ORDERED: 0.9 % Sodium Chloride 500 ML ONE ×2 (21:43→23:11)
[2020-02-05 22:37] LABS: Acinetobacter baumannii by PCR Not Detected (Not Detect); Enterococcus by PCR Not Detected (Not Detect); Staphylococcus aureus by PCR Not Detected (Not Detect); Staphylococcus by PCR Not Detected (Not Detect); Streptococcus agalactiae(B)PCR Not Detected (Not Detect); Streptococcus by PCR Not Detected (Not Detect); Streptococcus pneumoniae PCR Not Detected (Not Detect); Streptococcus pyogenes (A) PCR Not Detected (Not Detect); blaKPC Carbapenem-Resist Gene Not Detected (Not Detect); mecA Methicillin-Resist Gene Not Detected (Not Detect); vanA/B Vancomycin-Resist Genes Not Detected (Not Detect)
[2020-02-05 22:38] LABS: INR 1.7; Prothrombin Time 19.8 Seconds (9.4-12.1)
[2020-02-05 22:38] LABS: Enterobacter cloacae Cmplx PCR Not Detected (Not Detect); Enterobacteriaceae by PCR DETECTED (Not Detect); Escherichia coli by PCR DETECTED (Not Detect); Klebsiella oxytoca by PCR Not Detected (Not Detect); Klebsiella pneumoniae by PCR DETECTED (Not Detect)
[2020-02-05 22:39] LABS: Candida albicans by PCR Not Detected (Not Detect); Candida glabrata by PCR Not Detected (Not Detect); Candida krusei by PCR Not Detected (Not Detect); Candida parapsilosis by PCR Not Detected (Not Detect); Candida tropicalis by PCR Not Detected (Not Detect); Proteus by PCR Not Detected (Not Detect); Pseudomonas aeruginosa by PCR Not Detected (Not Detect); Serratia marcescens by PCR Not Detected (Not Detect)
[2020-02-05] MEDS ORDERED: Norepinephrine 4 MG/254 ML IV.SOLN IVC SCH (23:00)
[2020-02-05] MEDS: MetroNIDAZOLE 500 MG/100 ML 500 MG/100 ML BAG IVPB SCH (23:10)
[2020-02-05] MEDS: Calcium Gluconate 1gm/50mL 1 GM/50 ML BAG IVPB PRN (23:11)
[2020-02-05 23:38] LABS: Basophils # 0.1 K/mcL (0.0-0.2); Eosinophils # 0.1 K/mcL (0.0-0.6); Hematocrit 28.6 % (37.5-50.1); Immature Platelets 4.2 % (1.1-6.1); Mean Corpuscular HGB Conc 31.5 g/dL (31.6-35.5); Mean Corpuscular Hemoglobin 29.9 pg (28.0-33.3); Mean Platelet Volume 10.1 fL (9.4-12.4); Nucleated Red Blood Cells 1.6 /100 WBC (0); Red Blood Count 3.01 M/mcL (4.19-5.50); Red Cell Distribution Width 17.2 % (11.5-14.5); White Blood Count 5.5 K/mcL (4.3-11.1)
[2020-02-05 23:40] LABS: Platelet Count 85 K/mcL (140-400)
[2020-02-05 23:52] LABS: BUN/Creatinine Ratio 21 (6-26); Blood Urea Nitrogen 25 mg/dL (8-23); Calcium 6.8 mg/dL (8.6-10.3); Carbon Dioxide 14 mEq/L (23-29); Chloride 99 mEq/L (98-107); Glucose 239 mg/dL (70-105); Osmolality,Calculated 294 (280-300); Potassium 3.4 mEq/L (3.5-5.1); Sodium 136 mEq/L (136-145); eGFR For African Americans > 60 (> 60); eGFR For Non-African Americans > 60 (> 60)
[2020-02-05 23:53] LABS: ABG Base Excess -12 mEq/L (-2 to 3); ABG HCO3 13 mEq/L (21-27); ABG Oxygen Saturation 87 % (95-98); ABG PCO2 27 mmHg (35-45); ABG PO2 57 mmHg (85-104); ABG TCO2 14 mEq/L (20-26); Blood Gas Modality ASSIST CONTROL; Blood Gas VT 550 cc
[2020-02-05 23:57] LABS: Monocytes # 0.7 K/mcL (0.0-1.3); Neutrophils # 3.5 K/mcL (1.6-8.9)
[2020-02-05 23:58] LABS: Hypochromasia Present (Not Present); Microcytosis Present (Not Present); Poikilocytosis 1+ (Not Present); Polychromasia 1+ (Not Present)
[2020-02-05 23:59] LABS: Large Platelets Present (Not Present); Platelet Estimate Decreased (Normal); Reactive Lymphocytes Present (Not Present); Smudge Cells Present (Not Present); Toxic Granulation Present (Not Present)
[2020-02-06] MEDS ORDERED: 0.9 % Sodium Chloride 1,000 ML ONE (00:31)
[2020-02-06] MEDS: 0.9 % Sodium Chloride 1,000 ML IVC SCH ×3 (01:00→07:23)
[2020-02-06 01:17] LABS: ABG Base Excess -11 mEq/L (-2 to 3); ABG HCO3 14 mEq/L (21-27); ABG Oxygen Saturation 87 % (95-98); ABG PCO2 27 mmHg (35-45); ABG PH 7.32 pH Units (7.32-7.45); ABG PO2 56 mmHg (85-104); ABG TCO2 15 mEq/L (20-26); Blood Gas Modality ASSIST CONTROL; Blood Gas VT 550 cc
[2020-02-06] MEDS: Sodium Bicarbonate 150 MEQ in D5% in Water 1,000 ML IVC SCH (01:42)
[2020-02-06] MEDS: Calcium Gluconate 1gm/50mL 1 GM/50 ML BAG IVPB PRN ×2 (01:42→05:17)
[2020-02-06] MEDS: Ipratropium/Albuterol Neb 3 ML IH SCH ×2 (03:32→07:24)
[2020-02-06 04:24] LABS: ABG Base Excess -8 mEq/L (-2 to 3); ABG HCO3 16 mEq/L (21-27); ABG Oxygen Saturation 89 % (95-98); ABG PCO2 28 mmHg (35-45); ABG PH 7.37 pH Units (7.32-7.45); ABG PO2 57 mmHg (85-104); ABG TCO2 17 mEq/L (20-26); Blood Gas VT 550 cc
[2020-02-06 04:41] LABS: Hemoglobin 10.1 g/dL (12.9-16.9)
[2020-02-06] MEDS: Piperacillin/Tazobactam 3.375 GM in 0.9 % Sodium Chloride Mini Bag 100 ML IVPB SCH (04:41)
[2020-02-06 04:42] LABS: INR 2.4; Prothrombin Time 27.1 Seconds (9.4-12.1)
[2020-02-06 04:43] LABS: Hematocrit 31.2 % (37.5-50.1); Immature Platelets 4.4 % (1.1-6.1); Lymphocytes # 0.3 K/mcL (0.6-4.6); Mean Corpuscular HGB Conc 32.4 g/dL (31.6-35.5); Mean Corpuscular Hemoglobin 30.8 pg (28.0-33.3); Mean Corpuscular Volume 95.1 fL (83.0-100.0); Mean Platelet Volume 10.2 fL (9.4-12.4); Monocytes # 0.1 K/mcL (0.0-1.3); Nucleated Red Blood Cells 8.4 /100 WBC (0); Red Blood Count 3.28 M/mcL (4.19-5.50); Red Cell Distribution Width 17.1 % (11.5-14.5); White Blood Count 1.9 K/mcL (4.3-11.1)
[2020-02-06] MEDS ORDERED: *HR* Metoprolol 5 MG/5 ML VIAL IVP ONE ×3 (04:55→06:46)
[2020-02-06 04:56] LABS: Platelet Count 73 K/mcL (140-400)
[2020-02-06 04:58] LABS: Acetaminophen 21 mcg/mL (10-20)
[2020-02-06 05:15] LABS: Alanine Aminotransferase 1520 Units/L (7-52); Albumin 1.9 g/dL (3.5-5.7); Albumin/Globulin Ratio 0.9 (1.1-2.2); Alkaline Phosphatase 134 Units/L (34-104); Aspartate Amino Transferase > 3000 Units/L (13-39); BUN/Creatinine Ratio 23 (6-26); Bilirubin,Direct 1.7 mg/dL (0.0-0.2); Bilirubin,Indirect 1.9 mg/dL (0.0-1.0); Bilirubin,Total 3.6 mg/dL (0.3-1.0); Blood Urea Nitrogen 25 mg/dL (8-23); Calcium 6.5 mg/dL (8.6-10.3); Carbon Dioxide 17 mEq/L (23-29); Chloride 102 mEq/L (98-107); Globulin 2.2 g/dL (2.4-3.5); Glucose 224 mg/dL (70-105); Magnesium 1.9 mg/dL (1.6-2.6); Osmolality,Calculated 297 (280-300); Phosphorous 3.3 mg/dL (2.7-4.5); Potassium 3.1 mEq/L (3.5-5.1); Sodium 138 mEq/L (136-145); Total Protein 4.1 g/dL (6.4-8.9); eGFR For African Americans > 60 (> 60); eGFR For Non-African Americans > 60 (> 60)
[2020-02-06 05:34] LABS: Neutrophils # 1.4 K/mcL (1.6-8.9); Platelet Estimate Decreased (Normal); Polychromasia 1+ (Not Present); Smudge Cells Present (Not Present)
[2020-02-06 05:35] LABS: Hypochromasia Present (Not Present); Large Platelets Present (Not Present); Reactive Lymphocytes Present (Not Present); Toxic Granulation Present (Not Present)
[2020-02-06] MEDS ORDERED: Insulin LISPRO 300 UNITS/3 ML VIAL SQ SCH (06:00)
[2020-02-06] MEDS ORDERED: Octreotide 400 MCG in 0.9 % Sodium Chloride 100 ML IVC SCH (06:30)
[2020-02-06] MEDS: MetroNIDAZOLE 500 MG/100 ML 500 MG/100 ML BAG IVPB SCH (06:55)
[2020-02-06] MEDS ORDERED: Fluconazole 200 MG/100 ML 200 MG/100 ML BAG IVPB SCH ×2 (09:00)
[2020-02-06] MEDS ORDERED: Fluconazole 400 MG/200 ML 400 MG/200 ML BAG IVPB SCH (09:00)
[2020-02-06] MEDS ORDERED: Pantoprazole 40 MG VIAL IVP SCH ×2 (09:00)
[2020-02-06] MEDS ORDERED: Fluconazole 400 MG/200 ML 400 MG/200 ML BAG IVPB ONE ×2 (10:17)
[2020-02-06] MEDS ORDERED: Haloperidol Lactate 5 MG/ML VIAL IVP PRN (10:39)
[2020-02-06] MEDS ORDERED: Atropine Sulfate 1% 40 DROP/2 ML BOTTLE SL PRN (10:40)
[2020-02-07] MEDS ORDERED: Fluconazole 400 MG/200 ML 400 MG/200 ML BAG IVPB SCH (09:00)
[2020-02-09 15:19] VITALS: BP 89/53
[2020-02-09 17:13] LABS: Insulin, Free 35 uIU/mL (3-19)
[2020-02-10 00:30] LABS: Insulin, Total 45 uIU/mL (3-19)
== END 2020-02-06 11:22 | disposition expired | DRG 711 ==
LOC: 3BNU 08:03 → SAMDAY 08:03 → 3BNU 13:38 → ICNU 02-05 10:04
PROVIDERS: ADMIT Surgery; ATTEND Surgery